=== PATIENT | female | born 1950 | race Caucasian/White ===

== ENCOUNTER → 2018-05-06 | Outpatient (CLI) | payer OTHER ==
[~2018-05-06] MED LIST: ACCUPRIL PO; ACTOS15 MG PO; ADDERALL 15 MG15 MG PO; ADDERALL XR 2020 MG PO; AMARYL2 MG PO; ASPIRIN EC81 M1 PO; ASTELIN30 ML NS; ATENOLOL 50 MG50 M1 PO; BACTROBAN NASAL1 GM NS; CARISOPRODOL 3350 MG PO; CLARITIN10 M2 PO; CO Q-1010 MG PO; CO Q-10100 MG PO; DARVOCET-N 1001 EAC1 PO; EFFIENT10 MG PO; FENOFIBRATE134 MG PO; FERREX 150150 MG PO; FISH OIL 1,0001 EAC5 PO; FISH OIL SOFTG1 EACH PO; FLOVENT HFA 1110 MCG INH; FUROSEMIDE OR; GLUCOPHAGE1000 MG; GLUCOPHAGE1000 MG PO; HUMALOG100 UNIT/1; HYDROCODON-ACE1 EAC7 PO; IMDUR 30 MG TAB30 M1 PO; IMDUR 60 MG TAB60 M1 PO; LANTUSSOLASTAR; LASIX 20 MG TAB20 MG PO; LIVALO2 MG PO; LIVALO4 MG PO; LORTAB 5 MG/5001 TA1 PO; LUVOX CR100 MG PO; LUVOX CR150 MG PO; NITROSTAT0.4 MG SL; OMEPRAZOLE40 MG PO; PLAVIX 75 MG TA75 MG PO; POTASSIUM20 PO; PREDNISONE 10 M10 M1 PO; RESTORIL15 MG PO; SYMBICORT160 MCG/4. INH; SYNTHROID88 MCG PO; UNICOMPLEX M TA1 TA1 PO; VENTOLIN HFA INH8 GM IH; VENTOLIN NS; VENTOLIN17 GM INH; VITAMIN D 5050000 I1 PO; VITAMIN D-32000 UNIT PO; VITAMIN E400 UNIT PO; XOPENEX0.31 MG/3 IH; ZEGERID 40 MG1 EACH PO; ZETIA10 MG PO
== END ==
LOC: RAD 12:11
DX: J98.4 Other disorders of lung (principal)

== ENCOUNTER 2018-06-22 22:30 | Inpatient (IN) | payer OTHER ==
[~2018-06-22] VITALS: Ht 167.6 cm; Wt 99.8 kg
[2018-06-22 22:31] VITALS: BP 206/87
[2018-06-22 23:11] LABS: ABSOLUTE NEUTROPHILS 5.2 thou/uL (1.4-8.2); BASOPHILS 0.4 % (0.0-2.0); HEMATOCRIT 40.1 % (37.0-47.0); HEMOGLOBIN 13.1 gm/dL (12.0-15.0); LYMPHOCYTES 30.7 % (24.0-44.0); MCH 26.7 pg (26.0-34.0); MCHC 32.6 g/dL (28.0-37.0); MCV 81.8 fL (80.0-100.0); MONOCYTES 5.9 % (1.0-8.0); PLATELET COUNT 268 thou/uL (150-400); RDW 15.1 % (10.5-14.5); WBC 8.4 thou/uL (4.0-11.0)
[2018-06-22 23:15] LABS: ANION GAP 10 mmol/L (7-16); BUN 11 mg/dL (7-18); CALCIUM 8.9 mg/dL (8.5-10.1); CHLORIDE 105 mmol/L (98-107); CO2 26 mmol/L (21-32); CREATININE 0.7 mg/dL (0.6-1.0); GLUCOSE 156 mg/dL (74-106); POTASSIUM 3.4 mmol/L (3.5-5.1); SODIUM 141 mmol/L (136-145)
[2018-06-22 23:25] LABS: ALBUMIN 3.6 g/dL (3.4-5.0); APTT 25.7 Seconds (24.5-32.8); DIRECT BILIRUBIN < 0.1 mg/dL (<0.1-0.3); SGOT 21 U/L (15-37); SGPT 22 U/L (30-65); TOTAL BILIRUBIN 0.2 mg/dL (<0.1-1.0); TOTAL PROTEIN 6.8 g/dL (6.4-8.2); TROPONIN-I <0.06 ng/mL (<0.06)
[2018-06-23] VITALS (9 sets, daily range): BP systolic 18–151; BP diastolic 61–98
[2018-06-23 00:38] LABS: URINE BILIRUBIN NEGATIVE (Negative); URINE BLOOD NEGATIVE (Negative); URINE CLARITY CLEAR; URINE COLOR YELLOW; URINE GLUCOSE-RANDOM* NEGATIVE (Negative); URINE KETONES NEGATIVE (Negative); URINE LEUKOCYTES-REFLEX NEGATIVE (Negative); URINE NITRITE-REFLEX NEGATIVE (Negative); URINE PROTEIN (DIPSTICK) NEGATIVE (Negative); URINE SPECIFIC GRAVITY 1.015 (1.005-1.035); URINE UROBILINOGEN 0.2 E.U./dl (0.2-1.0)
[2018-06-23] MEDS ORDERED: LIORESAL 10 MG10 MG PO (00:39)
[2018-06-23] MEDS ORDERED: CO Q-10100 MG PO (00:39)
[2018-06-23] MEDS ORDERED: CARVEDILOL12.5 MG PO (00:39)
[2018-06-23] MEDS ORDERED: NEURONTIN600 MG PO (00:40)
[2018-06-23] MEDS ORDERED: LASIX 20 MG TAB20 MG PO (00:40)
[2018-06-23] MEDS ORDERED: METFORMIN HCL500 MG PO (00:40)
[2018-06-23] MEDS ORDERED: QUINAPRIL 20 MG20 MG PO (00:41)
[2018-06-23] MEDS ORDERED: OMEPRAZOLE40 MG PO (00:41)
[2018-06-23] MEDS ORDERED: ZYPITAMAG4 MG PO (00:41)
[2018-06-23] MEDS ORDERED: TRESIBA FL100 UNIT/1 SQ (00:42)
[2018-06-23] MEDS ORDERED: RANEXA500 MG PO (00:42)
[2018-06-23 00:50] LABS: SSA (PROTEIN CONFIRMATORY) NEGATIVE (Negative)
[2018-06-23] MEDS ORDERED: ASTEPRO205.5 MCG/ NASAL (03:09)
[2018-06-23] MEDS ORDERED: SYMBICORT160 MCG/4. INH (03:10)
[2018-06-23] MEDS ORDERED: NITROGLYCERIN0.4 MG SUBLING (03:12)
--- NOTE | 2018-06-23 05:50 | NUR ---
PT WAS LATE ADMIT WITH S OF POSSIBLE STROKE. PREVIOUS VILLEGAS HAVE BEEN DOCUMENTED. MED REC COMPLETED AND CARE PLAN ACTIVATED. SOME WEAKNESS IS SEEN ON THE LEFT SIDE, WHILE FALL PRECAUTIONS ARE IN PLACE. UP TO BSC X1. PT USES A CANE AT HOME AND A WALKER WITH WHEELS AT OTHER TIMES FOR IMPROVED MOBILITY. AT STORES PT USES ELECTRIC SCOOTER. REPLACED POTASSIUM VIA ORAL. RESPIRATORY SET PT UP ON CPAP AT HS. HOURLY ROUNDING.
[2018-06-23 06:02] LABS: ALBUMIN 3.3 g/dL (3.4-5.0); CALCIUM 8.7 mg/dL (8.5-10.1); CREATININE 0.7 mg/dL (0.6-1.0); PHOSPHORUS 3.2 mg/dL (2.5-4.9); POTASSIUM 3.7 mmol/L (3.5-5.1)
--- NOTE | 2018-06-23 08:14 | EKG ---
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 : 1950 Requested By: Lilliam Haley Order Number: [id number] MD: Jeff Wheatley Measurements Intervals [place] Rate: 63 P: 28 NC: 164 QRS: -5 QRSD: 157 T: -5 QT: 517 QTc: 530 Interpretive Statements Sinus rhythm Right bundle branch block Compared to ECG 09/06/2011 22:43:00 No significant changes Electronically Signed On 06-23-2018 8:14:03 CDT by Jeff Wheatley [email or web address] ��������������������������������������������� <ELECTRONICALLY SIGNED> ���������������������������������������� By: Jeff Wheatley MD ��������������������������������������������� 06/23/18 0814 15 15 Jeff Wheatley MD /LUCHO
--- NOTE | 2018-06-23 15:04 | NUR ---
Assumed care of patient at 0700. Patient presented with s/s of possible CVA. Upon assessment, patient displayed left-sided weakness r/t previous CVAs. Sensation on left side is also decreased compared to right. Patient has complained of head pain but patient reports relief after receiving her daily aspirin. Patient had multiple head MRIs done today which came back with no acute abnormalities. In talking with patient, she has expressed concern that her Neurotin may be causing the dizziness she's been experiencing, leading to the falls she has experienced. Patient has ambulated to bathroom with assist. Needs a little extra time but has seemed steady on her feet. NIH score of 1. Cervial MRI has been ordered to rule out any other issues. Examinied patient's right foot where she has increased friction between first and second toes. Patient reports that second toe was broken during previous stroke causing buldge resulting in friction. Area is blanchable with no open wound.
[2018-06-24 04:24] VITALS: BP 193/66
[2018-06-24 04:42] VITALS: BP 193/66
--- NOTE | 2018-06-24 06:17 | NUR ---
FOLLOWING POC FOR PT WHO IS AT RISK FOR FALLS. PT TO BATHROOM WITH STANDBY ASSIST AND USE OF CANE. DURING ASSESSMENT PT HAD COMPLIANTS OF SINUS PAIN AND CONGESTION. SPOKE WITH HOG DRIVER ABOUT ADDING CLARTIN, SALINE RINSE AND FLONASE. PT SAID THANK YOU. HOURLY ROUNDING.
[2018-06-24 07:25] VITALS: BP 177/88
[2018-06-24] MEDS ORDERED: CLARITIN10 M2 PO (13:07)
[2018-06-24] MEDS ORDERED: ACCUPRIL40 MG PO (13:07)
[2018-06-24] MEDS ORDERED: MUCINEX600 MG PO (13:07)
[2018-06-24] MEDS ORDERED: ACETAMINOPHEN325 M1 PO (13:07)
[2018-06-24] MEDS ORDERED: FLOMAX0.4 MG PO (13:07)
--- NOTE | 2018-06-24 16:20 | NUR ---
INITIAL ASSESSMENT: NELI reviewed chart and spoke with nursing and attending physician. Pt was admitted from home due to paresthesia. MRI is pending at this time. Pt may discharge home pending MRI results. Discharge orders written for home health services. NELI met with pt at bedside. Introduced role of SW. Pt is alert/orientated x 4. Pt reports she lives at home with her . Pt's mother also lives with them. Prior to admission, pt was independent with ADLs. Pt has a cane and walker. Options provided for agencies. Pt chose [facility]. NELI confirmed pt's home address and phone number. Pt's PCP is Dr. Eliazar Gabriel. Pt's family will provide transportation home. Contact info for [facility] placed in pt's discharge summary. NELI provided pt with [facility] for community resources: private duty. NELI is follwoing to assist as needed with discharge planning.
[2018-06-24 16:39] VITALS: BP 177/88
--- NOTE | 2018-06-29 12:04 | HC ---
[facility] [place] [address] CONSULTATION Name: NAVID DOZIER Room #: 361-P [facility] IN M.R.#: [id number] Admission: 06/23/18 ������������������ Attend Phys: Jorge Kirk MD Discharge: 06/24/18 ������������������ Date of : 54 Report #: [id number] THIS REPORT FOR: //name// CC: Eliazar Kirk DATE OF SERVICE: 06/23/2018 HISTORY OF PRESENT ILLNESS: This is a 67-year-old female patient who was seen by me for numbness on the left side. It is not clear what the duration of the patient's numbness is. She apparently saw Dr. Marcelo, neurologist and even then she was having these symptoms. She describes this numbness and moderately severe, which started spontaneously and it fluctuates. She has multiple symptoms associated with this, but some of those symptoms are going on for a long time. She has tremor in the left upper extremity and she was given gabapentin for that by a neurologist at [facility] and she was given Topamax recently by Dr. Marcelo. REVIEW OF SYSTEMS: Indicate that this patient had numbness on the right side, that was in 2011. I reviewed those records and she did see Dr. Rodriguez, neurologist at that time and MRI did show a tiny left-sided stroke. She also had symptoms on the left side, but I do not have record because she said she was in the [facility] at that time. She has a history of coronary artery disease and she had a bypass surgery as well as stents. She has a history of diabetes, which appeared to be uncontrolled. She said she has multiple psychiatric issues, which has been diagnosed as depression, anxiety, ADHD, OCD. She has a longstanding history of diabetes and she has sleep apnea. She indicates that her memory is not very good. This predates her stroke. She denies any new eye, ENT, cardiac, respiratory, GI, , musculoskeletal, constitutional, dermatological, hematological, psychiatric, throat and allergic symptom associated with present symptomatology. PAST MEDICAL HISTORY: Positive for 2 strokes, one in 2011, another one in 2013. The history is poorly defined in that regard. FAMILY HISTORY: Negative for any early age stroke. SOCIAL HISTORY: She said she does not smoke. PHYSICAL EXAMINATION: Indicate she is alert, responsive, able to follow simple and complex command. She believes her speech, concentration, fund of knowledge and memory is at her baseline. Cranial nerve examination 2-12 was mostly unremarkable. She feels weak on the left side. She does not give a good effort. That makes it difficult to do some objective evaluation. She says she can appreciate the position sense on both sides. Reflexes are diminished on both sides. Tone looks symmetrical. There is no cerebellar sign. I could not [facility] [address] [place] [address] CONSULTATION Name: NAVID DOZIER Room #: 361-P DIS IN M.R.#: [id number] Admission: 06/23/18 ������������������ Attend Phys: Jorge Kirk MD Discharge: 06/24/18 ������������������ Date of : 54 Report #: [id number] look at the patient's fundus. There is no meningeal sign. There is no carotid bruit. She is reasonably well-developed individual who does not have any difficulty with vision or hearing. There is no thyroid mass. There is no carotid bruit. Cardiac examination is unremarkable. No respiratory difficulty or rhonchi was noticed. Blood pressure is 151/61. It was high when she came in. Respiration is 16, pulse is 60, temperature is 98. LABORATORY DATA: Indicate normal WBC count. Her last cholesterol was high. She is on aspirin. CT scan of the head was reviewed and it was mostly unremarkable. IMPRESSION: The patient's symptoms are unstructured, but this patient has multiple vascular risk factors. Because of that, she needs evaluation for stroke and an MRI is already ordered. She has tremor, but that is chronic. She has her own neurologist. They have given her some medication, I will defer further evaluation and management to them as an outpatient. She had a sed rate and homocysteine at one time, that was unremarkable. She is complaining of some nonspecific memory disturbances and because of that, I will order a B12 level on her. We will check a lipid profile and do an echocardiogram to complete the workup. RECOMMENDATIONS: 1. We will await this workup. 2. We will reevaluate after this workup is available to see if any further testing or change in her medication is needed. I discussed all of it with the patient in detail and she understands that and wants to follow this plan. Thank you very much for this referral. We will follow this patient with you. ��������������������������������������������� <ELECTRONICALLY SIGNED> ���������������������������������������� By: Butch Bates MD ��������������������������������������������� 06/29/18 1204 [id number] Butch Bates MD /nt
== END 2018-06-24 17:46 | disposition home health service (06) | DRG 69 ==
LOC: ER 22:30 → EROBS 06-23 00:56 → 3W 06-23 00:56 → ENTRNSPT 06-24 17:25 → 3W 06-24 17:46
PROVIDERS: Emergency Medicine; Nurse Practitioner Family; ADMIT Internal Medicine
DX: G45.9 Transient cerebral ischemic attack, unspecified (principal); R47.1 Dysarthria and anarthria; R20.2 Paresthesia of skin; I10 Essential (primary) hypertension; E11.9 Type 2 diabetes mellitus without complications; K21.9 Gastro-esophageal reflux disease without esophagitis; I25.10 Atherosclerotic heart disease of native coronary artery without angina pectoris; F32.9 Major depressive disorder, single episode, unspecified; G47.33 Obstructive sleep apnea (adult) (pediatric); E78.5 Hyperlipidemia, unspecified; G89.29 Other chronic pain; M54.9 Dorsalgia, unspecified; G31.9 Degenerative disease of nervous system, unspecified; Z95.1 Presence of aortocoronary bypass graft; Z95.5 Presence of coronary angioplasty implant and graft; Z88.8 Allergy status to other drugs, medicaments and biological substances; Z79.899 Other long term (current) drug therapy
CPT/HCPCS: 10879

== ENCOUNTER → 2019-07-21 | Outpatient (CLI) | payer OTHER ==
[~2019-07-21] MED LIST changes: +ACCUPRIL40 MG PO; +ACETAMINOPHEN325 M1 PO; +ASTEPRO205.5 MCG/ NASAL; +CARVEDILOL12.5 MG PO; +FLOMAX0.4 MG PO; +LIORESAL 10 MG10 MG PO; +METFORMIN HCL500 MG PO; +MUCINEX600 MG PO; +NEURONTIN600 MG PO; +NITROGLYCERIN0.4 MG SUBLING; +QUINAPRIL 20 MG20 MG PO; +RANEXA500 MG PO; +TRESIBA FL100 UNIT/1 SQ; +ZYPITAMAG4 MG PO
== END ==
LOC: SJCVC 14:19
PROVIDERS: ATTEND Internal Medicine Cardiovascular Disease
DX: I45.10 Unspecified right bundle-branch block (principal); R00.1 Bradycardia, unspecified; R94.31 Abnormal electrocardiogram [ECG] [EKG]; I25.810 Atherosclerosis of coronary artery bypass graft(s) without angina pectoris; I10 Essential (primary) hypertension; E78.00 Pure hypercholesterolemia, unspecified; R60.9 Edema, unspecified; J45.909 Unspecified asthma, uncomplicated; E78.5 Hyperlipidemia, unspecified; Z79.82 Long term (current) use of aspirin; Z79.899 Other long term (current) drug therapy; Z79.4 Long term (current) use of insulin; Z79.84 Long term (current) use of oral hypoglycemic drugs; Z86.73 Personal history of transient ischemic attack (TIA), and cerebral infarction without residual deficits; Z82.49 Family history of ischemic heart disease and other diseases of the circulatory system; Z95.1 Presence of aortocoronary bypass graft